=== PATIENT | male | born 1950 | race Caucasian/White ===

== ENCOUNTER 2017-03-25 07:55 | Day surgery (SDC) | payer BC, OTHER ==
[~2017-03-25 07:55] MED LIST: ACETAMINOPHEN 1,000 MG/100 ML BTL IV ONE
[2017-03-25] MEDS ORDERED: EPINEPHRINE 1 MG/ML AMPUL SQ ONE (14:53)
[2017-03-25] MEDS ORDERED: DEXAMETHASONE 4 MG/ML 1ML VIAL IVP ONE (14:56)
[2017-03-25] MEDS ORDERED: ROPIVACAINE HCL (NAROPIN) /PF 5MG/ML 20ML VIAL IV ONE (14:56)
[2017-03-25] MEDS ORDERED: FENTANYL PF 100MCG/2ML VIAL IV ONE (15:01)
[2017-03-25] MEDS ORDERED: SUCCINYLCHOLINE 20 MG/ML 10ML IVP ONE (15:01)
[2017-03-25] MEDS ORDERED: NEOSTIGMINE 1 MG/1 ML,10ML VIAL IV ONE (15:01)
[2017-03-25] MEDS ORDERED: GLYCOPYRROLATE 0.2 MG/ML ML IV ONE (15:01)
[2017-03-25] MEDS ORDERED: MIDAZOLAM HCL 2MG/2ML VIAL IV ONE (15:01)
[2017-03-25] MEDS ORDERED: SEVOFLURANE 250 ML INH ONE (15:01)
[2017-03-25] MEDS ORDERED: EPHEDRINE SULFATE 50 MG/ML ML IV ONE (15:01)
[2017-03-25] MEDS ORDERED: ROCURONIUM BROMIDE 50MG/5ML VIAL IV ONE (15:01)
[2017-03-25] MEDS ORDERED: KETOROLAC 30 MG/ML VIAL IVP ONE (15:01)
[2017-03-25] MEDS ORDERED: PROPOFOL 10 MG/ML VIAL IV ONE (15:01)
[2017-03-25] MEDS ORDERED: LIDOCAINE 2% MDV (20MG/ML) 20ML VIAL IV ONE (15:01)
[2017-03-25] MEDS ORDERED: ONDANSETRON HCL IV 4 MG/2 ML VIAL IVP ONE (15:01)
--- NOTE | 2017-03-25 16:53 | Operative Note ---
DATE OF SURGERY: 03/25/2017 Surgeon: Giancarlo Dow DO PREOPERATIVE DIAGNOSES: 1. Tear of the left rotator cuff. 2. Impingement syndrome, left shoulder. POSTOPERATIVE DIAGNOSES: 1. Tear of the left rotator cuff. 2. Impingement syndrome, left shoulder. OPERATION: 1. Arthroscopic repair of the left rotator cuff. 2. Arthroscopic subacromial decompression and acromioplasty of the left shoulder. DESCRIPTION OF PROCEDURE: This 66-year-old male was taken to the operating room, placed in the supine position on the operating room table. A general anesthesia was induced. The patient was placed in the beach chair position with all tania prominences well padded and the head well secured. The left shoulder prepped with Hibiclens and draped in the usual sterile fashion. A posterior portal was established in the left shoulder and initial evaluation of the joint demonstrated normal appearance of the articular cartilage. The glenoid labrum appeared to be normal as did the subscapularis and biceps tendon. Visualization of the supraspinatus did reveal articular surface tearing of the supraspinatus. Infraspinatus appeared to be intact. I did not clearly visualize a full-thickness defect. We then placed the scope in the subacromial space and thorough subacromial decompression and acromioplasty was performed. This gave us excellent visualization of the rotator cuff and this was a delamination type tear with an extremely thin layer of fiber still remaining intact. From the bursal surface, I also did not see a full-thickness defect; however, there were only devaughn few fibers remaining intact. We debrided the abnormal tendon down and exposed the normal tuberosity at attachment site for the supraspinatus tendon. The entire tendon appeared to be involved. We then debrided the bony surface to prepare for an implantation of the rotator cuff into the tuberosity. Subsequently this repair was accomplished by using an Arthrex speed bridge technique. This was done by placing two 4.5 SwiveLock anchors adjacent to the articular cartilage, one at the anterior and one at the posterior margins of the tear. FiberTape and Dubberly Tape, respectively, were passed through the rotator cuff and then a single limb of each one of these sutures was placed through a third SwiveLock anchor which was placed inferior to the anterior anchor, traction placed on the sutures to bring the cuff down to the tuberosity and the anchor impaled. Seemed to be satisfactory and the sutures were cut. Subsequently, the 2 remaining tails of suture were placed through a fourth SwiveLock anchor which were placed inferior to the posterior anchor. Again, traction was placed on the sutures to bring the cuff down tightly to its normal anatomic attachment site. The anchor was subsequently impaled and the sutures cut. The repair seemed to be satisfactory. Subsequently, the wound was irrigated and suctioned. The instruments were removed. The 3 portals were closed with 4-0 nylon sutures, sterile dressings applied and Ultra sling and the patient taken to the recovery room in satisfactory condition. GROSS PATHOLOGY: This patient demonstrated a very severe tear of the rotator cuff which was very severe on the bursal surface and mild on the articular surface. The patient's cuff was so thin there is very likely a full-thickness defect at some point although I would admit that I did not clearly see that with the arthroscope. The repair was accomplished by using Arthrex speed bridge technique using FiberTape and Dubberly Tape as described above. CC: MD SANJUANA Rodríguez
== END 2017-03-25 12:45 | disposition home or self-care (01) ==
LOC: SUR 07:55
PROVIDERS: ATTEND Orthopaedic Surgery
DX: S46.012A Strain of muscle(s) and tendon(s) of the rotator cuff of left shoulder, initial encounter (principal); M75.42 Impingement syndrome of left shoulder; I10 Essential (primary) hypertension
CPT/HCPCS: 29826; 29827; 01630; 64415; J1885; J2405; J3010; J2795; 76942; G0202; J0171; J0330; J2710

== ENCOUNTER 2017-03-30 21:39 | Emergency (ER) | payer BC, OTHER ==
[2017-03-30] MEDS ORDERED: IBUPROFEN 400 MG TABLET PO ONE (22:10)
[2017-03-30 22:29] LABS: BASO % 0.4 % (0-6); EOS % 0.2 % (0-6); GRAN % 75.4 % (47-80); HEMATOCRIT 41.5 % (42.0-52.0); HEMOGLOBIN 13.9 gm/dl (14.0-18.0); LYMPH % 13.4 % (16-45); MEAN CELL VOLUME 88.5 fl (81-97); MEAN CORPUSCULAR HEMOGLOBIN 29.6 pg (27-33); MEAN CORPUSCULAR HGB CONC 33.5 g/dl (32-36); MEAN PLATELET VOLUME 10.5 fl (7.4-10.4); MONO % 10.6 % (0-9); PLATELET COUNT 223 K/uL (130-400); RED BLOOD COUNT 4.69 M/uL (4.40-5.70); RED CELL DISTRIBUTION WIDTH 13.4 % (11.5-14.5); WHITE BLOOD COUNT W/O DIFF 11.8 K/uL (4.2-12.2)
[2017-03-30 22:31] LABS: URINE APPEARANCE CLEAR; URINE BILIRUBIN NEGATIVE (NEGATIVE); URINE BLOOD NEGATIVE (NEGATIVE); URINE COLOR YELLOW; URINE GLUCOSE (UA) NEGATIVE (NEGATIVE); URINE KETONE NEGATIVE (NEGATIVE); URINE LEUKOCYTE ESTERASE NEGATIVE (NEGATIVE); URINE NITRITE NEGATIVE (NEGATIVE); URINE PROTEIN NEGATIVE (NEGATIVE); URINE UROBILINOGEN 0.2 E.U./dL (0.20 - 1.00)
[2017-03-30 22:42] LABS: ALB/GLOB RATIO 1.3 (1.1-1.8); ALBUMIN 4.2 gm/dL (3.5-5.0); ALKALINE PHOSPHATASE 55 U/L (38-126); ALT/SGPT 28 U/L (21-72); ANION GAP 11.3 (7-16); AST/SGOT 24 U/L (17-59); BILIRUBIN,TOTAL 0.74 mg/dL (0.2-1.3); BLOOD UREA NITROGEN 13 mg/dL (9-20); CARBON DIOXIDE 24.7 mmol/L (22-30); CREATININE 0.8 mg/dL (0.66-1.25); EST GLOMERULAR FILTRATION RATE > 60 ml/min; GLUCOSE,RANDOM 121 mg/dL (70-110); TOTAL PROTEIN 7.4 gm/dL (6.3-8.2)
--- NOTE | 2017-03-30 23:00 | Emergency Department Record ---
History of Present Illness - General Chief Complaint: Fever Stated Complaint: FEVER Time Seen by Provider: 03/30/17 22:01 Source: Patient Mode of Arrival: Ambulatory Limitations: No limitations - History of Present Illness Initial Comments: pt had surgery on his shoulder 5 days ago and has been doing fine but then today deviloped a fever, mild headache and just fdidnt feel well. he has no other symptoms. his surgery is still doing great w no erythema or drainage Complaint: Fever Onset/Timin -: Days(s) Maximum Temperature: 100.6 F Temperature Source: Oral Context: Recent procedure Associated Symptoms: Chills, Headache, Nausea Treatments Prior to Arrival: Acetaminophen Treatment Prior to Arrival Comment:: last dose 2 hrs of norco; last dose of tylenol 4pm - Related Data Home Medications Medication Instructions Recorded Confirmed Last Taken Hydrocodone/Acetaminophen 1 tab PO Q4HR PRN 03/30/17 03/30/17 03/30/17 [Hydrocodone/Acetaminophen 7.5mg/325mg] Losartan Potassium [Losartan 50 mg PO DAILY 03/30/17 03/30/17 03/30/17 Potassium] Allergies Allergy/AdvReac Type Severity Reaction Status Date / Time Penicillins Allergy RASH Verified 03/22/17 16:00 Travel Screening - Travel/Exposure Within Last 30 Days Have you traveled within the last 30 days?: No - Travel Symptoms Symptom Screening: None Review of Systems Reviewed: No additional complaints except as noted below Constitutional: Reports: As per HPI. Denies: Chills, Fever, Malaise, Night sweats, Weakness, Weight change Eyes: Reports: As per HPI. Denies: Eye discharge, Eye pain, Photophobia, Vision change ENT: Reports: As per HPI. Denies: Congestion, Dental pain, Ear pain, Epistaxis , Hearing loss, Throat pain Respiratory: Reports: As per HPI. Denies: Cough, Dyspnea, Hemoptysis, Stridor, Wheezes Cardiovascular: Reports: As per HPI. Denies: Arrhythmia, Chest pain, Dyspnea on exertion, Edema, Murmurs, Orthopnea, Palpitations, Paroxysmal nocturnal dyspnea, Rheumatic Fever, Syncope Endocrine: Reports: As per HPI. Denies: Fatigue, Heat or cold intolerance, Polydipsia, Polyuria Gastrointestinal: Reports: As per HPI. Denies: Abdominal pain, Constipation, Diarrhea, Hematemesis, Hematochezia, Melena, Nausea, Vomiting Genitourinary: Reports: As per HPI. Denies: Dysuria, Frequency, Hematuria, Incontinence, Retention, Testicular pain, Testicular mass, Urgency Musculoskeletal: Reports: As per HPI. Denies: Arthralgia, Back pain, Gout, Joint swelling, Myalgia, Neck pain Skin: Reports: As per HPI. Denies: Bruising, Change in color, Change in hair/ nails, Lesions, Pruritus, Rash Neurological: Reports: As per HPI. Denies: Abnormal gait, Confusion, Headache, Numbness, Paresthesias, Seizure, Tingling, Tremors, Vertigo, Weakness Psychiatric: Reports: As per HPI. Denies: Anxiety, Auditory hallucinations, Depression, Homicidal thoughts, Suicidal thoughts, Visual hallucinations Hematological/Lymphatic: Reports: As per HPI. Denies: Anemia, Blood Clots, Easy bleeding, Easy bruising, Swollen glands Past Medical History - SOCIAL HISTORY Smoking Status: Never smoker - RESPIRATORY Hx Respiratory Disorders: Yes Hx Bronchitis: Yes - CARDIOVASCULAR Hx Cardio Disorders: Yes Hx Hypertension: Yes (on meds good control) - NEURO Hx Neuro Disorders: No - GI Hx GI Disorders: No - Hx Genitourinary Disorders: Yes Hx Prostate Problems: Yes (enlarged slow urine) - ENDOCRINE Hx Endocrine Disorders: No - MUSCULOSKELETAL Hx Musculoskeletal Disorders: Yes Hx Arthritis: Yes (mid back) - PSYCH Hx Psych Problems: No - HEMATOLOGY/ONCOLOGY Hx Hematology/Oncology Disorders: No Family Medical History Any Significant Family History?: Yes Hx Cancer: Father Physical Exam - General General Appearance: Alert, Oriented x3, Cooperative, Mild distress - Head Head exam: Normal inspection - Eye Eye exam: Normal appearance, PERRL, EOMI Pupils: Normal accommodation - ENT ENT exam: Normal exam, Mucous membranes moist, Normal external ear exam, Normal orophraynx Ear exam: Normal external inspection. negative: External canal tenderness Nasal Exam: Normal inspection. negative: Discharge, Sinus tenderness Mouth exam: Normal external inspection, Tongue normal Teeth exam: Normal inspection. negative: Dental caries Throat exam: Normal inspection. negative: Tonsillar erythema, Tonsillar exudate - Neck Neck exam: Normal inspection, Full ROM. negative: Tenderness - Respiratory Respiratory exam: Normal lung sounds bilaterally. negative: Respiratory distress - Cardiovascular Cardiovascular Exam: Regular rate, Normal rhythm, Normal heart sounds - GI/Abdominal GI/Abdominal exam: Soft, Normal bowel sounds. negative: Tenderness - Rectal Rectal exam: Deferred - exam: Deferred - Extremities Extremities exam: Normal inspection, Joint swelling, Normal capillary refill, Tenderness, Other (healing rotator cuff surgery with no erythema and no drainage ). negative: Full ROM - Back Back exam: Reports: Normal inspection, Full ROM. Denies: Muscle spasm, Rash noted, Tenderness - Neurological Neurological exam: Alert, CN II-XII intact, Normal gait, Oriented X3 - Psychiatric Psychiatric exam: Normal affect, Normal mood - Skin Skin exam: Dry, Intact, Normal color, Warm Course Vital Signs 03/30/17 03/30/17 21:44 21:46 Temperature 98.7 F 98.7 F Pulse Rate [ 102 H Pulse Ox Probe] Respiratory 20 20 Rate Blood Pressure 148/95 [Right Arm] Pulse Ox 96 96 Medical Decision Making - Lab Data Result diagrams: 03/30/17 22:22 03/30/17 22:22 Lab Results 03/30/17 03/30/17 03/30/17 Range/Units 22:22 22:22 22:23 WBC 11.8 (4.2-12.2) K/uL RBC 4.69 (4.40-5.70) M/uL Hgb 13.9 L (14.0-18.0) gm/dl Hct 41.5 L (42.0-52.0) % MCV 88.5 (81-97) fl MCH 29.6 (27-33) pg MCHC 33.5 (32-36) g/dl RDW 13.4 (11.5-14.5) % Plt Count 223 (130-400) K/uL MPV 10.5 H (7.4-10.4) fl Gran % 75.4 (47-80) % Lymphocytes % 13.4 L (16-45) % Monocytes % 10.6 H (0-9) % Eosinophils % 0.2 (0-6) % Basophils % 0.4 (0-6) % Sodium 138 (136-145) mmol/L Potassium 4.0 (3.5-5.1) mmol/L Chloride 102 (98-107) mmol/L Carbon Dioxide 24.7 (22-30) mmol/L Anion Gap 11.3 (7-16) BUN 13 (9-20) mg/dL Creatinine 0.8 (0.66-1.25) mg/dL Estimated GFR > 60 ml/min Random Glucose 121 H (70-110) mg/dL Calcium 8.7 (8.5-10.1) mg/dL Total Bilirubin 0.74 (0.2-1.3) mg/dL AST 24 (17-59) U/L ALT 28 (21-72) U/L Alkaline Phosphatase 55 (38-126) U/L Total Protein 7.4 (6.3-8.2) gm/dL Albumin 4.2 (3.5-5.0) gm/dL Globulin 3.2 (1.4-4.8) gm/dL Albumin/Globulin Ratio 1.3 (1.1-1.8) Urine Color Urine Appearance Urine pH (5.0-8.0) Ur Specific [place] (1.002-1.030) Urine Protein (NEGATIVE) Urine Glucose (UA) (NEGATIVE) Urine Ketones (NEGATIVE) Urine Blood (NEGATIVE) Urine Nitrite (NEGATIVE) Urine Bilirubin (NEGATIVE) Urine Urobilinogen (0.20 - 1.00) E.U./dL Ur Leukocyte Esterase (NEGATIVE) Group A Strep Screen Negative (NEGATIVE) 03/30/17 Range/Units 22:31 WBC (4.2-12.2) K/uL RBC (4.40-5.70) M/uL Hgb (14.0-18.0) gm/dl Hct (42.0-52.0) % MCV (81-97) fl MCH (27-33) pg MCHC (32-36) g/dl RDW (11.5-14.5) % Plt Count (130-400) K/uL MPV (7.4-10.4) fl Gran % (47-80) % Lymphocytes % (16-45) % Monocytes % (0-9) % Eosinophils % (0-6) % Basophils % (0-6) % Sodium (136-145) mmol/L Potassium (3.5-5.1) mmol/L Chloride (98-107) mmol/L Carbon Dioxide (22-30) mmol/L Anion Gap (7-16) BUN (9-20) mg/dL Creatinine (0.66-1.25) mg/dL Estimated GFR ml/min Random Glucose (70-110) mg/dL Calcium (8.5-10.1) mg/dL Total Bilirubin (0.2-1.3) mg/dL AST (17-59) U/L ALT (21-72) U/L Alkaline Phosphatase (38-126) U/L Total Protein (6.3-8.2) gm/dL Albumin (3.5-5.0) gm/dL Globulin (1.4-4.8) gm/dL Albumin/Globulin Ratio (1.1-1.8) Urine Color Yellow Urine Appearance Clear Urine pH 7.5 (5.0-8.0) Ur Specific [place] 1.010 (1.002-1.030) Urine Protein Negative (NEGATIVE) Urine Glucose (UA) Negative (NEGATIVE) Urine Ketones Negative (NEGATIVE) Urine Blood Negative (NEGATIVE) Urine Nitrite Negative (NEGATIVE) Urine Bilirubin Negative (NEGATIVE) Urine Urobilinogen 0.2 (0.20 - 1.00) E.U./dL Ur Leukocyte Esterase Negative (NEGATIVE) Group A Strep Screen (NEGATIVE) Disposition Disposition: Discharge Clinical Impression: Viral syndrome Disposition: Home, Self-Care Condition: (1) Good Instructions: Fever in Adults (ED) Additional Instructions: follow up with family doctor and with dr lock. return sooner if worse. tylenol and motrin as needed Forms: Patient Portal Access
--- NOTE | 2017-03-31 09:13 | RADIOLOGY REPORT ---
EXAM: CHEST, TWO VIEWS HISTORY: ELEVATED TEMPERATURE, NAUSEA MOST OF TODAY, HEADACHE, HAD SURGERY OF THE LEFT SHOULDER LAST WEEK. TECHNIQUE: PA and lateral views of the chest were obtained. Comparison: None. FINDINGS: The heart size is normal. Torsion of the aorta. The lungs appear expanded with no acute infiltrate seen. No pleural effusion or pneumothorax evident. Moderate spurring in the spine. Postop changes left shoulder. IMPRESSION: 1. MODERATE SPURRING IN THE SPINE. 2. POSTOP CHANGES LEFT SHOULDER. 3. NO DEFINITE ACUTE INFILTRATE SEEN. JOB NUMBER: [id number] [facility]
== END 2017-03-30 23:09 | disposition home or self-care (01) ==
LOC: ER 21:39
DX: B34.9 Viral infection, unspecified (principal); R51 Headache; R11.0 Nausea; R50.81 Fever presenting with conditions classified elsewhere; Z98.890 Other specified postprocedural states
CPT/HCPCS: 71020; 80053; 81003; 85025; 87880; 99283